=== PATIENT | female | born 1980 | race Caucasian/White ===

== ENCOUNTER 2022-04-19 20:11 | Emergency (ER) | payer BC, SELFPAY ==
[2022-04-19] MEDS ORDERED: Cefepime 2 GM VIAL ONE (20:32)
[2022-04-19] MEDS ORDERED: Morphine 4 MG/ML VIAL ONE (20:32)
[2022-04-19] MEDS ORDERED: Boostrix 0.5 ML (Tdap) VIAL ONE (20:32)
[2022-04-19] MEDS ORDERED: Ondansetron PF 4 MG/2 ML Vial ONE (20:49)
[2022-04-19] MEDS ORDERED: Bacitracin 1 PK ONE (21:21)
== END 2022-04-19 22:10 | disposition home or self-care (01) ==
LOC: ERS 20:11
DX: S81.022A Laceration with foreign body, left knee, initial encounter (principal); Z23 Encounter for immunization; W45.0XXA Nail entering through skin, initial encounter
CPT/HCPCS: 90471; 90715; 96365; 96375; J0692; J2270; J2405

== ENCOUNTER 2022-04-21 21:27 | Emergency (ER) | payer SELFPAY ==
[2022-04-21] MEDS ORDERED: Lidocaine 1% PF 5 ML VIAL ONE (22:07)
== END 2022-04-21 22:45 | disposition home or self-care (01) ==
LOC: ERS 21:27
DX: S81.012A Laceration without foreign body, left knee, initial encounter (principal); X58.XXXA Exposure to other specified factors, initial encounter
CPT/HCPCS: 12001